=== PATIENT | female | born 1985 | race Caucasian/White ===

== ENCOUNTER 2016-11-13 14:00 | Emergency (ER) | payer SELFPAY ==
[~2016-11-13] VITALS: Ht 162.6 cm; Wt 48.0 kg
[2016-11-13 14:06] VITALS: TEMP 97.8
[2016-11-13] MEDS ORDERED: FLEXERIL 1010 MG/TAB PO (15:16)
[2016-11-13 15:27] VITALS: BP 106/60; PULSE 78
== END 2016-11-13 15:28 | disposition home or self-care (01) ==
LOC: COL.ER 14:00
DX: M54.5 Low back pain (principal); X50.0XXA Overexertion from strenuous movement or load, initial encounter; R20.0 Anesthesia of skin
CPT/HCPCS: J1885; J2360

== ENCOUNTER 2016-12-20 12:13 | Emergency (ER) | payer SELFPAY ==
[~2016-12-20] VITALS: Ht 160 cm; Wt 49.5 kg
[~2016-12-20 12:13] MED LIST: FLEXERIL 1010 MG/TAB PO
[2016-12-20 12:24] VITALS: TEMP 97.9
[2016-12-20] MEDS ORDERED: NORCO 325 MG-51 TAB PO (13:54)
[2016-12-20] MEDS ORDERED: FLEXERIL 1010 MG/TAB PO (13:54)
[2016-12-20 14:03] VITALS: BP 150/68; PULSE 80
== END 2016-12-20 14:04 | disposition home or self-care (01) ==
LOC: COL.ER 12:13
DX: S39.012A Strain of muscle, fascia and tendon of lower back, initial encounter (principal); X50.0XXA Overexertion from strenuous movement or load, initial encounter
CPT/HCPCS: J2360